=== PATIENT | male | born 1970 | race Caucasian/White ===

== ENCOUNTER → 2020-04-06 | Outpatient (CLI) | payer BC, OTHER ==
[~2020-04-06] MED LIST: ULTRAM50 MG PO; ZOFRAN ODT 4 MG4 MG SL
== END ==
LOC: HEART 5 10:17
DX: R06.09 Other forms of dyspnea (principal); R94.2 Abnormal results of pulmonary function studies; F17.210 Nicotine dependence, cigarettes, uncomplicated
CPT/HCPCS: 94010